=== PATIENT | female | born 1960 | race Caucasian/White ===

== ENCOUNTER → 2016-05-07 | Outpatient (CLI) | payer OTHER, MEDICARE ==
[~2016-05-07] MED LIST: AMIO200T42 PO; AMIT150T PO; ASPI-621 PO; CELE200C PO; DIAZ10TA4 PO; FURO-93 PO; GADOBUTROL 10 MMOL/10 ML PFS ONE; MORP15TA3 PO; MORP30TA3 PO; OXYC1TAB8 PO; POTA10TA5 PO; SIMV40TA3 PO
== END | disposition home or self-care (01) ==
LOC: CFH 12:33
PROVIDERS: ATTEND Family Medicine
DX: M48.07 Spinal stenosis, lumbosacral region (principal); M54.12 Radiculopathy, cervical region; M54.16 Radiculopathy, lumbar region; M47.896 Other spondylosis, lumbar region; M47.897 Other spondylosis, lumbosacral region
CPT/HCPCS: 72148; 72156; 82565; A9585

== ENCOUNTER → 2017-08-31 | Outpatient (CLI) | payer OTHER, MEDICARE ==
[~2017-08-31] MED LIST changes: -GADOBUTROL 10 MMOL/10 ML PFS ONE
== END | disposition home or self-care (01) ==
LOC: CFH 13:10
PROVIDERS: ATTEND Physician Assistant Medical
DX: Z13.820 Encounter for screening for osteoporosis (principal); N64.4 Mastodynia; Z78.0 Asymptomatic menopausal state
CPT/HCPCS: 77080; 77066

== ENCOUNTER 2018-06-30 16:14 | Emergency (ER) | payer OTHER, MEDICARE ==
[~2018-06-30] VITALS: Ht 165.1 cm; Wt 110.0 kg
[~2018-06-30 16:14] MED LIST changes: -ASPI-621 PO; +ASPI81TA45 PO
[2018-06-30] MEDS ORDERED: ASPIRIN 81 MG TABLET CHEW PO ONE (16:30)
[2018-06-30 16:49] LABS: BASOPHILS # (AUTO) 0.05 x10^3/uL (0-0.1); BASOPHILS % (AUTO) 1 % (0-1); EOSINOPHILS # (AUTO) 0.03 x10^3/uL (0-0.4); EOSINOPHILS % (AUTO) 0 % (1-7); LYMPHOCYTES # (AUTO) 2.11 x10^3/uL (1-3.4); LYMPHOCYTES % (AUTO) 21 % (22-44); MD NO; MEAN CORPUSCULAR HEMOGLOBIN 31.7 pg (27.0-34.8); MEAN CORPUSCULAR HGB CONC 33.1 g/dL (32.4-35.8); MEAN CORPUSCULAR VOLUME 95.7 fL (80-100); MEAN PLATELET VOLUME 7.9 fL (7.4-10.4); MONOCYTES % (AUTO) 4 % (2-9); NEUTROPHILS # (AUTO) 7.62 x10^3/uL (1.8-6.8); NEUTROPHILS % (AUTO) 75 % (42-75); PLATELET COUNT 310 x10^3/uL (130-400); RED CELL DISTRIBUTION WIDTH 13.8 % (9.6-15.2)
--- NOTE | 2018-06-30 16:54 | NUR ---
Pt presents to ED for "not feeling good". Pt has vague complaints of palpitations. Loose stools yesterday, none today. Pt anxious.
[2018-06-30 17:01] LABS: ALBUMIN 4.7 g/dL (3.4-5.0); ANION GAP 14 mmol/L (5-15); CALCIUM 9.5 mg/dL (8.5-10.1); CHLORIDE 106 mmol/L (98-107)
[2018-06-30 17:07] LABS: ALANINE AMINOTRANSFERASE 49 U/L (12-78); ALKALINE PHOSPHATASE 51 U/L (45-117); BILIRUBIN,TOTAL 0.6 mg/dL (0.2-1.0); CREATININE 1.02 mg/dL (0.55-1.02); TOTAL PROTEIN 8.3 g/dL (6.4-8.2); TROPONIN I < 0.015 ng/mL (0.000-0.045)
[2018-06-30] MEDS ORDERED: LORazepam 2 MG/ML, 1ML IVPush ONE (17:30)
[2018-06-30] MEDS ORDERED: ASPIRIN 81 MG TABLET CHEW ONE (17:37)
[2018-06-30] MEDS ORDERED: LORazepam 1MG TABLET ONE (17:41)
[2018-06-30] MEDS ORDERED: LORazepam 1MG TABLET PO ONE (18:00)
[2018-06-30 18:50] VITALS: BP 124/69
--- NOTE | 2018-06-30 18:51 | NUR ---
REPORT RECEIVED FROM ELENA ODONNELL.
--- NOTE | 2018-06-30 19:01 | NUR ---
PT GIVEN DC INSTRUCTIONS. PT'S AOX4. RESPS EVEN AND UNLABORED. PT AMB TO DC WITH STEADY GAIT. NO ACUTE DISTRESS AT DC.
== END 2018-06-30 19:02 | disposition home or self-care (01) ==
LOC: ED 17:00
DX: F41.1 Generalized anxiety disorder (principal); R00.2 Palpitations; R06.4 Hyperventilation; R06.00 Dyspnea, unspecified; G89.29 Other chronic pain; I10 Essential (primary) hypertension
CPT/HCPCS: 36415; 71045; 80053; 83880; 84443; 84484; 85025; 85379; 93005; 99284

== ENCOUNTER 2019-02-14 14:21 | Outpatient (CLI) | payer OTHER, MEDICARE ==
[~2019-02-14 14:21] MED LIST changes: +MORP-29 PO; +MORP-30 PO; -MORP15TA3 PO; -MORP30TA3 PO
== END 2019-02-14 23:59 | disposition home or self-care (01) ==
LOC: CFH 14:21
PROVIDERS: ATTEND Family Medicine
DX: Z12.31 Encounter for screening mammogram for malignant neoplasm of breast (principal); N64.89 Other specified disorders of breast
CPT/HCPCS: 76642; 77066; G0279